=== PATIENT | male | born 1990 | race Caucasian/White ===

== ENCOUNTER 2021-02-10 11:23 | Emergency (ER) | payer SELFPAY ==
[2021-02-10 11:32] VITALS: BP 143/96; PULSE 80; RESP 16; TEMP 36; O2SAT 100
--- NOTE | 2021-02-10 11:38 | PC.NURSE ---
1136 50 mg benadryl po martha elena.
--- NOTE | 2021-02-10 11:44 | ED.WOUNDLAC ---
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 Patient denies any shortness of breath at this time no itching. Related Data Home Medications Medication Instructions Recorded Confirmed Epi Pen 02/10/21 Allergies Allergy/AdvReac Type Severity Reaction Status Date / Time venom-honey bee Allergy Severe Difficulty Unverified 02/10/21 11:42 Breathing latex Allergy Unknown Difficulty Unverified 02/10/21 11:42 Breathing Review of Systems Review of Systems: GENERAL:Well-appearing, well-nourished, and in no acute distress. HEAD:Normocephalic, atraumatic. EYES: PERRLA and EOMI. ENT: Nares clear, no rhinorrhea or epistaxis. Mucous membranes moist. NECK: Supple. CHEST: Clear to auscultation. No respiratory distress. HEART: Regular rate and rhythm. No murmur heard. Normal peripheral pulses. ABDOMEN: Soft, nontender, nondistended, normal active bowel sounds. EXTREMITIES: Normal range of motion. No edema. SKIN: Warm, dry, no rash. right arm swollen and ertyhema and warm to touch NEURO: No focal deficits. Alert and oriented x3. PMFSH Comments At time as signature, I have reviewed and agree with nursing past medical, social, surgical and family history. Please see nursing chart for further information. There is no relevant family history pertinent to the presenting complaint. Exam Narrative: GENERAL:Well-appearing, well-nourished, and in no acute distress. HEAD:Normocephalic, atraumatic. EYES: PERRLA and EOMI. ENT: Nares clear, no rhinorrhea or epistaxis. Mucous membranes moist. NECK: Supple. CHEST: Clear to auscultation. No respiratory distress. HEART: Regular rate and rhythm. No murmur heard. Normal peripheral pulses. ABDOMEN: Soft, nontender, nondistended, normal active bowel sounds. EXTREMITIES: Normal range of motion. No edema. SKIN: Warm, dry, no rash. Right wrist red swollen erythema and warm to touch NEURO: No focal deficits. Alert and oriented x3. Course ASSISTANT SERVICE MANAGER/PA Physician Supervision 50 mg of Benadryl given 40 mg Depo-Medrol IM Arm is less red swelling has trended down patient will continue with Benadryl at home epinephrine ordered for patient as well as a steroid Dosepak Vital Signs Vital signs: Vital Signs Temperature 96.8 F L 02/10/21 11:32 Pulse Rate 80 02/10/21 11:32 Respiratory Rate 16 02/10/21 11:32 Blood Pressure 143/96 H 02/10/21 11:32 Pulse Oximetry 100 02/10/21 11:32 Temperature 96.8 F L 02/10/21 11:32 Pulse Rate 80 02/10/21 11:32 Respiratory Rate 16 02/10/21 11:32 Blood Pressure 143/96 H 02/10/21 11:32 Pulse Oximetry 100 02/10/21 11:32 MDM - Wound/Laceration Differential Diagnosis Differential diagnosis: Likely laceration, abscess, abrasion, avulsion of skin and other (Allergic reaction) Discharge Plan Discharge Clinical Impression: Allergic reaction to bee sting Bee sting reaction Qualifiers: Encounter type: initial encounter Injury intent: accidental or unintentional Qualified Code(s): T63.441A - Toxic effect of venom of bees, accidental (unintentional), initial encounter Patient Disposition: Home, Self-Care Condition: Stable Instructions: Antibiotic Form, Insect Bite or Sting (ED), Anaphylaxis (ED), Hypertension (ED), General Allergic Reaction (ED) Additional Instructions: Use skin creams/lotion, such as those containing calamine or pramoxine to reduce itchiness Avoid scratching when possible to prevent worsening of the condition and disruption of the skin that could lead to bacterial infection To relieve itching, place a cool washcloth or some ice over the area that itches, rather than scratching
--- NOTE | 2021-02-10 11:45 | PC.NURSE ---
stated girl friend here and waiting outside prior to administration of medication.
[2021-02-10] MEDS: methylPREDNISolone ACETATE 40 MG/ML VIAL IM (11:56)
--- NOTE | 2021-02-10 12:00 | PC.NURSE ---
during medication injection pt witnessed wasp in room and was immediately taken to room 3.
== END 2021-02-10 12:17 | disposition home or self-care (01) ==
PROVIDERS: Emergency Provider Nurse Practitioner Family
DX: T63.441A Toxic effect of venom of bees, accidental (unintentional), initial encounter (principal)
CPT/HCPCS: 96372; 99213; A9270; G0463; J1030

== ENCOUNTER 2024-07-02 21:14 | Emergency (ER) | payer SELFPAY ==
--- NOTE | ~2024-07-02 | XR_ITS ---
EXAMINATION: XR chest 2V Exam Date/Time: 07/02/2024 21:43 CARBON PRINTER HISTORY: chest pain Comparison: None. RESULT: Lines, tubes, and devices: None. Lungs and pleura: Clear. Cardiomediastinal silhouette: Normal. Other: No acute osseous or upper abdominal finding. IMPRESSION: No acute cardiopulmonary process. Reviewed, dictated and finalized at location K. ON PRINTER
[2024-07-02 21:26] VITALS: BP 183/96; PULSE 104; RESP 16; TEMP 36.5; O2SAT 100
--- NOTE | 2024-07-02 21:27 | ECG_ITS ---
Test Date: 2024-07-02 21:39:02 Measurements Intervals Pierce Rate: 94 P: 60 NC: 125 QRS: 38 QRSD: 107 T: 42 QT: 348 QTc: 437 Interpretive Statements SINUS RHYTHM WITH SINUS ARRHYTHMIA No previous ECG available for comparison Electronically Signed On 07-03-2024 14:55:08 EXTENSION SUPERVISOR by Abram Cintron M.D.
[2024-07-02 21:53] LABS: Basophils Absolute Auto 0.1 K/mm3 (0.0-0.1); Basophils Percent Auto 0.5 % (0.2-1.2); Eosinophils Absolute Auto 0.5 K/mm3 (0-0.3); Eosinophils Percent Auto 5.5 % (0-4.4); Hematocrit 46.1 % (42.0-52.0); Hemoglobin 16.4 g/dL (14.0-18.0); Immature Granulocyte Absolute 0.02 K/mm3 (0.00-0.031); Immature Granulocyte Percent A 0.2 % (0-0.5); Lymphocytes Absolute Auto 2.13 K/mm3 (0.9-3.2); Mean Corpuscular HGB Conc 35.6 g/dl (32-36); Mean Corpuscular Hemoglobin 31.8 pg (26-34); Mean Corpuscular Volume 89.5 fl (80-100); Monocytes Absolute Auto 0.7 K/mm3 (0.1-0.6); Monocytes Percent Auto 7.7 % (2.6-8.5); Neutrophils Absolute Auto 5.8 K/mm3 (1.3-6.7); Neutrophils Percent Auto 63.1 % (45.5-73.1); Platelet Count Result 264 k/mm3 (150-375); Red Blood Count 5.15 M/mm3 (4.6-6.20); Red Cell Distribution Width 13.3 % (11.5-14.5); White Blood Count 9.3 K/mm3 (4.5-10.0)
[2024-07-02 22:02] LABS: Alanine Aminotransferase 34 U/L (6-50); Albumin Level 4.8 g/dL (3.5-5.1); Alkaline Phosphatase 49 U/L (38-126); Anion Gap 6 mmol/L (4-12); Aspartate Amino Transferase 32 U/L (17-59); Bilirubin,Total 0.6 mg/dL (0.2-1.3); Blood Urea Nitrogen 12 mg/dL (9-20); Calcium 9.5 mg/dL (8.4-10.2); Carbon Dioxide 25 mmol/L (22-30); Chloride 107 mmol/L (98-107); Estimated CRCL calculation 107 ml/min; Estimated Glomerular Filt Rate > 60; Glucose 111 mg/dL (65-110); Lipase 150 U/L (23-300); Potassium 3.3 mmol/L (3.4-5.0); Sodium 138 mmol/L (137-145)
[2024-07-02 22:06] LABS: Prothrombin Time 13.1 Seconds (11.1-14.7)
[2024-07-02 22:07] LABS: Partial Thromboplastin Time 28.5 Seconds (22.3-36.8)
[2024-07-02 22:13] LABS: Troponin I < 0.012 ng/mL (0.000-0.034)
[2024-07-03 00:45] VITALS: O2SAT 98
[2024-07-03 00:46] VITALS: BP 124/81; PULSE 72; RESP 14; O2SAT 97
--- NOTE | 2024-07-03 00:57 | ED_ITS ---
HPI - Chest Pain General Chief Complaint: Chest Pain Stated Complaint: chest tightness Time Seen by Provider: 07/03/24 00:31 History of Present Illness HPI narrative: Patient is a 34-year-old male who presents to the emergency department this evening complaining of chest pressure and burning sensation that has been ongoing for the past 3 days. Patient admits that he does chew tobacco and his significant other who is present at bedside does admit that he does also have a history of acid reflux. Denies any history of cardiovascular disease, patient states that he does not have any past medical history and does not take any medications. Also denies any family history of cardiovascular disease. Patient admits that the pain is intermittent and mild. Not associated with any alleviating or aggravating factors. Denies any recent illness including any fevers, chills, cough, nasal congestion, shortness of breath. Also denies any nausea, vomiting or abdominal pain. No additional symptoms or concerns at this time. Related Data Home Medications ?Medication ?Instructions ?Recorded ?Confirmed ?Last Taken ?Type Epi Pen 02/10/21 Unknown History Allergies Allergy/AdvReac Type Severity Reaction Status Date / Time venom-honey bee Allergy Severe Difficulty Verified 07/03/24 00:49 Breathing Review of Systems 2 Review of Systems: All systems are reviewed and are negative unless stated otherwise in the HPI. Exam 2 Narrative: General: Alert, awake, afebrile, in no acute distress. HEENT: PERRL, no rhinorrhea, no post nasal drip, oropharynx clear. Neck: Trachea midline, no JVD, no lymphadenopathy. Cardiovascular: Regular rate and rhythm, no murmurs, rubs or gallops, no peripheral edema. Respiratory: Clear to auscultation bilaterally, no tachypnea, no wheezing, no rhonchi, no rubs, no respiratory distress. Abdomen: Soft, nontender, nondistended, no rebound, no guarding, no peritoneal signs. Musculoskeletal: No joint swelling or deformity, normal muscle tone. Skin: No rashes or petechia, no signs of infection. Psychiatric: Alert and oriented, normal behavior and judgment for situation. Neurological: Alert and oriented to person, place, and time. Follows all commands. No focal deficits, speech is clear and fluent. Course Vital Signs Vital signs: Vital Signs Temperature 97.7 F 07/02/24 21:26 Pulse Rate 104 H 07/02/24 21:26 Respiratory Rate 16 07/02/24 21:26 Blood Pressure 183/96 H 07/02/24 21:26 Pulse Oximetry 100 07/02/24 21:26 Temperature 97.7 F 07/02/24 21:26 Pulse Rate 72 07/03/24 00:46 Respiratory Rate 14 07/03/24 00:46 Blood Pressure 124/81 07/03/24 00:46 Pulse Oximetry 97 07/03/24 00:46 Oxygen Delivery Room Air 07/03/24 00:45 MDM - Chest Pain MDM Narrative Medical decision making narrative: The patient was evaluated by myself in the emergency department. History is obtained from patient who is an independent historian and physical exam was performed. External medical records were reviewed at this time. IV was established and pertinent tests were ordered. Patient was administered 20 mg of oral Pepcid at this time. EKG was obtained which revealed sinus rhythm rate of 94 beats per minute. No ST changes, T wave inversions or evidence of acute ischemia. EKG was independently interpreted by me and is currently pending official cardiology read. Laboratory results obtained revealing no acute process. Troponin negative. Imaging studies obtained included CXR which was independently interpreted by me revealing no acute cardiopulmonary process, which is pending final radiology interpretation. Differential diagnosis considerations include acute stress reaction, anxiety, panic attack, GERD, peptic ulcer disease, acute coronary syndrome although unlikely given patient's low heart score of 0. Comorbidities impacting this visit include none. I have evaluated and discussed social determinants of health with the patient that could potentially impact subsequent diagnosis and treatment plans. On repeat assessment of the patient, reevaluation revealed that the patient is doing well and is in no acute distress. Patient symptoms have improved since he arrived to our emergency department. Repeat vital signs were all reviewed and noted to be stable. Differential diagnosis and treatment plan were discussed with the patient at bedside. Patient agrees with discussion and after shared medical decision making agrees with discharge. All questions were answered to the patient's satisfaction. Patient will follow up with PCP in 3-5 days. A script for Protonix was sent to patient's pharmacy to take as prescribed. Patient was provided with strict return precautions and instructed to return to the emergency department if any new or worsening symptoms develop. The patient was discharged in stable condition. Lab Data 07/02/24 21:45 07/02/24 21:45 Labs: Lab Results 07/02/24 Range/Units 21:45 WBC 9.3 (4.5-10.0) K/mm3 RBC 5.15 (4.6-6.20) M/mm3 Hgb 16.4 (14.0-18.0) g/dL Hct 46.1 (42.0-52.0) % MCV 89.5 (80-100) fl MCH 31.8 (26-34) pg MCHC 35.6 (32-36) g/dl RDW 13.3 (11.5-14.5) % Plt Count 264 (150-375) k/mm3 MPV 9.0 (7.4-10.4) fl Immature Gran % (Auto) 0.2 (0-0.5) % Neut % (Auto) 63.1 (45.5-73.1) % Lymph % (Auto) 23.0 (18.3-44.2) % [place] % (Auto) 7.7 (2.6-8.5) % Eos % (Auto) 5.5 H (0-4.4) % Baso % (Auto) 0.5 (0.2-1.2) % Lymph # (Auto) 2.13 (0.9-3.2) K/mm3 [place] # (Auto) 0.7 H (0.1-0.6) K/mm3 Eos # (Auto) 0.5 H (0-0.3) K/mm3 Baso # (Auto) 0.1 (0.0-0.1) K/mm3 Abs Immat Gran (auto) 0.02 (0.00-0.031) K/mm3 Absolute Neuts (auto) 5.8 (1.3-6.7) K/mm3 Absolute Nucleated RBC 0.000 (0.0-0.012) K/mm3 Nucleated RBC % 0.0 (0.0-0.2) % PT 13.1 (11.1-14.7) Seconds INR 1.0 APTT 28.5 (22.3-36.8) Seconds Sodium 138 (137-145) mmol/L Potassium 3.3 L (3.4-5.0) mmol/L Chloride 107 (98-107) mmol/L Carbon Dioxide 25 (22-30) mmol/L Anion Gap 6 (4-12) mmol/L BUN 12 (9-20) mg/dL Creatinine 1.20 (0.7-1.3) mg/dL Estim Creat Clear Calc 107 ml/min Estimated GFR > 60 (59 - ) Glucose 111 H (65-110) mg/dL Calcium 9.5 (8.4-10.2) mg/dL Total Bilirubin 0.6 (0.2-1.3) mg/dL AST 32 (17-59) U/L ALT 34 (6-50) U/L Alkaline Phosphatase 49 (38-126) U/L Troponin I < 0.012 (0.000-0.034) ng/mL Total Protein 8.0 (6.3-8.2) g/dL Albumin 4.8 (3.5-5.1) g/dL Lipase 150 (23-300) U/L Discharge Plan Discharge Clinical Impression: Atypical chest pain, History of gastroesophageal reflux (GERD) Patient Disposition: Home, Self-Care Condition: Improved Instructions: Antibiotic Form, Chest Pain (ED), GERD (Gastroesophageal Reflux Disease) (DC) Additional Instructions: Please follow-up with your family doctor within the next 3-5 days. Take the prescribed Protonix as instructed as it may help with your acid reflux as this could be causing some of your chest pressure/burning pain. Return to the ED if any new or worsening symptoms develop. Patient Language: Cymraes Prescriptions: New pantoprazole [Protonix] 20 mg tablet,delayed release (DR/EC) 20 mg PO HS 28 Days Qty: 28 0RF No Action Epi Pen epinephrine [EpiPen] 0.3 mg/0.3 mL auto-injector 0.3 mg IM ONCE PRN (Reason: anaphylaxis) Qty: 1 0RF Rx Instructions: as a single dose; may repeat once methylprednisolone [Medrol (Lyndon)] 4 mg tablets,dose pack See Rx Instructions .ROUTE .COMPLEX Qty: 21 0RF Rx Instructions: orally per package directions cetirizine [Zyrtec] 10 mg tablet 10 mg PO DAILY PRN (Reason: allergy symptoms) Qty: 30 0RF triamcinolone acetonide 0.025 % cream 1 applic topical BID PRN (Reason: allergic reaction) Qty: 15 0RF Follow-up/Referrals: Yaritza Agudelo DO [Physician] - 3 Days PHYSICIAN,CERTIFIED ALCOHOL COUNSELOR [Primary Care Provider] - Time of Disposition: 01:05
[2024-07-03] MEDS: FAMOTIDINE 20 MG TABLET PO (01:10)
[2024-07-03 01:13] VITALS: BP 102/88; PULSE 67; RESP 14; O2SAT 97
--- OUTSIDE RECORDS SUMMARY | 2024-07-10 02:20 | XMS_ITS | Clinical Summary ---
Author Organization [facility] Address [address] [place] [address]. [place], [place] [id number] [place] [id number] Care Team Providers Care Fraud Representative Name Role Phone None, Provider MD Primary Care Provider Unavaila ble Allergies No known active allergies Medications No known medications Family History Medical History Relation Comments Diabetes Father Hyperlipidemia Father Relation Status Comments Father Alive Mother Alive Social History Tobacco Use Types Packs/Day Years Used Date Smoking Tobacco: Never Smokeless Tobacco: Current Chew Alcohol Use Standard Drinks/Week Comments Yes 0 (1 standard drink = 0.6 oz pur e alcohol) rare use Sex and Gender Information Value Date Recorded Sex Assigned at Not on file Legal Sex Male 10:39 AM DOUGH MIXER OPERATOR Gender Identity Not on file Sexual Orientation Not on file Last Filed Vital Signs Vital Sign Reading Time Taken Comments Blood Pressure 119/80 05/19/2022 10:50 AM DOUGH MIXER OPERATOR Pulse 90 05/19/2022 10:50 AM DOUGH MIXER OPERATOR Temperature 36.3 ??C (97.4 ??F) 05/19/2022 10:[address] Respiratory Rate 20 05/19/2022 10:50 AM DOUGH MIXER OPERATOR Oxygen Saturation 100% 05/19/2022 10:50 AM DOUGH MIXER OPERATOR Inhaled Oxygen Concentration - - Weight 117.9 kg (260 lb) 05/19/2022 10:50 AM DOUGH MIXER OPERATOR Height 185.4 cm (6' 1 ) 05/19/2022 10:50 AM DOUGH MIXER OPERATOR Body Mass Index 34.3 05/19/2022 10:50 AM DOUGH MIXER OPERATOR Plan of Treatment Health Maintenance Due Date Last Done Comments Annual Physical 1995 Hepatitis C 2010 DTaP, Tdap and Td Vaccines ( 1 - Tdap) 2011 Hepatitis B Vaccines (1 of 3 - 19+ 3-dose series) 2011 COVID-19 Vaccine (2023-2 5 season) 2024 Influenza Adult (#1) 2024 HPV Vaccines Aged Out No longer eligi ble based on patient's age to complete this topic Meningococcal Vaccine Aged Out No zoe alba eligible based on patient's age to complete this topic Pneumococcal Vaccine: Pediat rics (0 to 5 Years) and At-Risk Patients (6 to 64 Years) Aged Out No longer eligible b ased on patient's age to complete this topic RSV Immunizations Under 20 Months Aged Out No longer eligible based on patient's age to complete this topic Insurance Care Teams Fraud Representative Relationship Specialty Start Date End Date None, Provider, PCP - General UNKNOWN PHYSICIAN SPECIALTY 05/19/22
--- OUTSIDE RECORDS SUMMARY | 2024-07-10 02:20 | XMS_ITS | Encounter Summary ---
Author Organization [facility] Address [address] [place] [address]. [place], [place] [id number] [place], [place] [id number] Care Team Providers Care Production Posting Clerk Name Role Phone None, Provider Primary Care Provider Unavaila ble Encounter Details Date Type Department Care Team (Latest Contact Info) Description 05/19/2022 Travel Social History Tobacco Use Types Packs/Day Years Used Date Smoking Tobacco: Never Smokeless Tobacco: Current Chew Alcohol Use Standard Drinks/Week Comments Yes 0 (1 standard drink = 0.6 oz pur e alcohol) rare use Sex and Gender Information Value Date Recorded Sex Assigned at Not on file Legal Sex Male 10:39 AM HEAD CUSTODIAN Gender Identity Not on file Sexual Orientation Not on file COVID-19 Exposure Response Date Recorded In the last 10 days, have yo u been in contact with someone who was confirmed or suspected to have Coronavirus/COVID-19? No / Unsure 05/19/2022 10:41 AM HEAD CUSTODIAN documented as of this encounter Plan of Treatment Not on file documented as of this encounter Visit Diagnoses Not on filedocumented in this encounter Care Teams Production Posting Clerk Relationship Specialty Start Date End Date None, Provider, PCP - General UNKNOWN PHYSICIAN SPECIALTY 05/19/22 documented as of this encounter
--- OUTSIDE RECORDS SUMMARY | 2024-07-10 02:21 | XMS_ITS | Clinical Summary ---
Author Organization [facility] Care Team Providers Care Assisted Living Housekeeper Name Role Phone Unavailable Primary Care Provider Unavailabl e Social History Tobacco Use Types Packs/Day Years Used Date Smoking Tobacco: Never Assessed Sex and Gender Information Value Date Recorded Sex Assigned at Not on file Legal Sex Male 10:38 AM DIRECTOR OF TAX SERVICES Gender Identity Not on file Sexual Orientation Not on file Plan of Treatment Health Maintenance Due Date Last Done Comments Hepatitis C Virus (HCV) Screening 1992 TdaP Immunization 1992 Hepatitis B Immunization (1 of 3 - 19+ 3-dose series) 2011 SARS-COV-2 Immunization ( season) 2023 Influenza Immunization (Seas on Ended) 2024 Meningococcal Immunization (ACWY) Aged Out No longer eligible based on patient's age to complete this topic Pneumococcal Immunization Combined Aged Out No longer eligible based on patient's age to complete this topic Rotavirus Immunization Aged Out No lo nger eligible based on patient's age to complete this topic
--- OUTSIDE RECORDS SUMMARY | 2024-07-10 02:21 | XMS_ITS | Encounter Summary ---
Author Organization [facility] Address [address] [place] [id number] Care Team Providers Care Wet Room Supervisor Name Role Phone Unavailable Primary Care Provider Unavailabl e Encounter Details Date Type Department Care Team (Late st Contact Info) Description 07/19/2020 9:30 AM WAITER/WAITRESS TAVERN Rapid Evaluation [place] [facility] Community Testing [facility] [address] [place] [address] Social History Tobacco Use Types Packs/Day Years Used Date Smoking Tobacco: Never Assessed Sex and Gender Information Value Date Recorded Sex Assigned at Not on file Legal Sex Male 10:38 AM WAITER/WAITRESS TAVERN Gender Identity Not on file Sexual Orientation Not on file documented as of this encounter Plan of Treatment Not on file documented as of this encounter Visit Diagnoses Not on filedocumented in this encounter
--- OUTSIDE RECORDS SUMMARY | 2024-07-10 02:21 | XMS_ITS | Encounter Summary ---
Author Organization [facility] Address [address] [place] [address]. [place], [place] [address] [place] [address] Care Team Providers Care Captain Fishing Vessel Name Role Phone None, Provider MD Primary Care Provider Unavaila ble Reason for Visit * Reason Comments Eye Problem Encounter Details Date Type Department Care Team (Latest Contact Info) Description 05/19/2022 10:41 AM HEAD PASTRY CHEF - 05/19/2022 11:39 AM HEAD PASTRY CHEF Hospital Encounter [facility] [address] [place] [address] Erick tSone PA [address] [place], [place] [id number] Eye Problem Discharge Disposition: Home or Self Care (Routine Discharge) Social History Tobacco Use Types Packs/Day Years Used Date Smoking Tobacco: Never Smokeless Tobacco: Current Chew Alcohol Use Standard Drinks/Week Comments Yes 0 (1 standard drink = 0.6 oz pur e alcohol) rare use Sex and Gender Information Value Date Recorded Sex Assigned at Not on file Legal Sex Male 10:39 AM HEAD PASTRY CHEF Gender Identity Not on file Sexual Orientation Not on file COVID-19 Exposure Response Date Recorded In the last 10 days, have yo u been in contact with someone who was confirmed or suspected to have Coronavirus/COVID-19? No / Unsure 05/19/2022 10:41 AM HEAD PASTRY CHEF documented as of this encounter Last Filed Vital Signs Vital Sign Reading Time Taken Comments Blood Pressure 119/80 05/19/2022 10:50 AM HEAD PASTRY CHEF Pulse 90 05/19/2022 10:50 AM HEAD PASTRY CHEF Temperature 36.3 ??C (97.4 ??F) 05/19/2022 10:[address] Respiratory Rate 20 05/19/2022 10:50 AM HEAD PASTRY CHEF Oxygen Saturation 100% 05/19/2022 10:50 AM HEAD PASTRY CHEF Inhaled Oxygen Concentration - - Weight 117.9 kg (260 lb) 05/19/2022 10:50 AM HEAD PASTRY CHEF Height 185.4 cm (6' 1 ) 05/19/2022 10:50 AM HEAD PASTRY CHEF Body Mass Index 34.3 05/19/2022 10:50 AM HEAD PASTRY CHEF documented in this encounter Discharge Instructions * Discharge Instructions* AYESHA Contreras - 05/19/2022 11:32 AM HEAD PASTRY CHEF Take medication as prescribed. Follow-up with your primary care provider in 5 to 7 days. Return emergency department symptoms worsen or new concerns. PASTRY CHEF * Attachments The following attachments cannot be sent through Care Everywhere. * Corneal Abrasion Discharge Instructions (Tajik) documented in this encounter Medications at Time of Discharge amoxicillin-clavu lanate (AUGMENTIN) 875-125 MG tablet Take 1 tablet (875 mg total) by mouth 2 (two) times daily for 10 days. 20 tablet 05/19/2022 05/29/2022 erythromycin (ROMYCIN) 5 MG/GM (0.5%) ophthalmic ointment Place into the right eye every 6 (six) hours for 7 days. 3.5 g 05/19/2022 05/26/2022 documented as of this encounter ED Notes * AYESHA Contreras - 05/19/2022 11:32 AM CST ED NOTE Chief Complaint Chief Complaint Patient presents with ??? Eye Problem History of Present Illness 31-year-old male presenting to urgent care for evaluation of multiple complaints. Primarily concerned of right eye irritation and discomfort over the past day. Patient states he was using a new marine welder yesterday however was wearing a mask unsure if he had debris flying to his face. Denies any visualchanges or drainage to the eye. Patient also reports sinus congestion with sinus pressure over the past 2 weeks. Reports thick green mucus drainage. No relief with [id number] medications. Denies fever, chills or difficulty breathing. Medical History ALLERGIES: No Known Allergies MEDICATIONS: Prior to Admission medications Medication Sig Start Date End Date Taking? Authorizing Provider amoxicillin-clavulanate (AUGMENTIN) 875-125 MG tablet Take 1 tablet (875 mg total) by mouth 2 (two)times daily for 10 days. 05/19/22 05/29/22 Yes AYESHA Contreras erythromycin (ROMYCIN) 5 MG/GM (0.5%) ophthalmic ointment Place into the right eye every 6 (six) hours for 7 days. 05/19/22 05/26/22 Yes AYESHA Contreras PAST MEDICAL HISTORY: Past medical history negative for heart disease, cancer, and diabetes. Past Medical History: Diagnosis Date ??? Clavicle fracture ??? Rib fracture PAST SURGICAL HISTORY: Past Surgical History: Procedure Laterality Date ??? NONE FAMILY HISTORY: Family history negative for heart disease, cancer Family History Problem Relation Name Age of Onset ??? Hyperlipidemia Father ??? Diabetes Father SOCIAL HISTORY: Social History Tobacco Use ??? Smoking status: Never Smoker ??? Smokeless tobacco: Current User Types: Chew Vaping Use ??? Vaping Use: Never used Substance Use Topics ??? Alcohol use: Yes Comment: rare use ??? Drug use: Yes Types: Marijuana Comment: daily Review of Systems Review of Systems Constitutional: Negative for activity change and appetite change. HENT: Positive for congestion and sinus pain. Negative for ear discharge, ear pain and sore throat. Eyes: Positive for redness. Negative for photophobia. Respiratory: Negative for cough and shortness of breath. Cardiovascular: Negative for chest pain. Gastrointestinal: Negative for nausea and vomiting. Musculoskeletal: Negative for back pain and neck pain. Neurological: Negative for dizziness, syncope and light-headedness. Physical Exam Filed Vitals: 05/19/22 1050 BP: 119/80 Pulse: 90 Resp: 20 Temp: 97.4 ??F (36.3 ??C) TempSrc: Temporal SpO2: 100% Weight: 117.9 kg (260 lb) Height: 6' 1 (1.854 m) Physical Exam Vitals and nursing note reviewed. Constitutional: General: He is not in acute distress. Appearance: He is well-developed. HENT: Head: Normocephalic. Nose: Nose normal. Eyes: Conjunctiva/sclera: Right eye: Right conjunctiva is injected. Pupils: Right eye: Corneal abrasion (less than 1mm medial aspect of lower cornea) present. Slit lamp exam: Right eye: No photophobia. Pulmonary: Effort: Pulmonary effort is normal. No respiratory distress. Musculoskeletal: Cervical back: Normal range of motion and neck supple. Skin: General: Skin is warm and dry. Neurological: Mental Status: He is alert and oriented to person, place, and time. Psychiatric: Behavior: Behavior normal. Thought Content: Thought content normal. Judgment: Judgment normal. Diagnostic Studies / Procedures ELECTROCARDIOGRAMS: No results found for this visit on 05/19/22. LABORATORY STUDIES: No results found for this visit on 05/19/22. IMAGING STUDIES No orders to display ED Course / Medical Decision Making Appears to have small corneal abrasion to the medial aspect of the right lower cornea. We will start patient on erythromycin ointment and have follow-up with ophthalmology. Also will start patient onAugmentin for sinusitis symptoms that have been present for 2 weeks with no resolution with niyk-elw-hcyzkby medications. Medications ophthalmic irrigation (EYE WASH) solution 2,360 drop (has no administration in time range) tetracaine 0.5 % ophthalmic solution 1 drop (has no administration in time range) fluorescein (FLUORETS) ophthalmic strip 1 strip (has no administration in time range) Clinical Impression Corneal abrasion (Primary) Sinusitis Current Discharge Medication List START taking these medications Details amoxicillin-clavulanate (AUGMENTIN) 875-125 MG tablet Take 1 tablet (875 mg total) by mouth 2 (two)times daily for 10 days. Qty: 20 tablet, Refills: 0 Class: Eprescribe Pharmacy: [facility] [address] [place] [address] (Ph #: [phone]) erythromycin (ROMYCIN) 5 MG/GM (0.5%) ophthalmic ointment Place into the right eye every 6 (six) hours for 7 days. Qty: 3.5 g, Refills: 0 Class: Eprescribe Pharmacy: [facility] [address] [place] [address] (Ph #: [phone]) Disposition: Discharge Follow-Up: Jacky Teresa MD [address] [place] [address] Schedule an appointment as soon as possible for a visit in 5 days AYESHA Contreras 05/19/2022 AYESHA Contreras 05/19/22 1137 Cosigned by Luci Nicole MD at 05/19/2022 8:55 PM HEAD PASTRY CHEF PASTRY CHEF PASTRY CHEF * Cherelle Purcell RN - 05/19/2022 10:52 AM CST Pt reports bilateral eye irritation and drainage that started Tuesday after trying out a new marine welder while wearing a mask. Pt states it felt like sand in his eye. History of seasonal allergies and congestion for months that is worse in the warmer weather. Does not wear glasses or contacts. PASTRY CHEF documented in this encounter Plan of Treatment Not on file documented as of this encounter Visit Diagnoses Diagnosis Corneal abrasion- Primary Superficial injury of cornea Sinusitis Unspecified sinusitis (chronic) documented in this encounter Administered Medications Inactive Administered Medications - up to 3 most recent administrations Medication Order MAR Action Action Date Dose Rate Site fluorescein (FLUORETS) ophthalmic strip 1 strip 1 strip, Both Eyes, Once, 1 dose, On Tue05/19/22 at 1115 Given 05/19/2022 11:38 AM HEAD PASTRY CHEF 1 strip ophthalmic irrigation (EYE WASH) solution 2,360 drop 2,360 drop (1 Bottle), Both Eyes, As needed, Other, Starting on Tue05/19/22 at 1056, Until Tue05/19/22 at 1342 Given 05/19/2022 11:38 AM HEAD PASTRY CHEF 2,360 drops tetracaine 0.5 % ophthalmic solution 1 drop 1 drop, Both Eyes, Once, 1 dose, On Tue05/19/22 at 1115 Given 05/19/2022 11:38 AM HEAD PASTRY CHEF 1 drop documented in this encounter Active and Recently Administered Medications Times are shown in HEAD PASTRY CHEF. Scheduled Medication Order 05/17/2022 05/18/2022 05/19/2022 fluorescein (FLUORETS) ophthalmic strip 1 strip (COMPLETED) 1 strip, Both Eyes, Once, 1 dose, On Tue05/19/22 at 1115 1138 (Given - Provid er: Екатерина Ferraro RN) tetracaine 0.5 % ophthalmic solution 1 drop (COMPLETED) 1 drop, Both Eyes, Once, 1 dose, On Tue05/19/22 at 1115 1138 (Given - Provid er: Екатерина Ferraro RN) PRN Medication Order 05/17/2022 05/18/2022 05/19/2022 ophthalmic irrigation (EYE WASH) solution 2,360 drop 2,360 drop (1 Bottle), Both Eyes, As needed, Other, Starting on Tue05/19/22 at 1056, Until Tue05/19/22 at 1342 1138 (Given - Provid er: Екатерина Ferraro RN) documented in this encounter Care Teams Captain Fishing Vessel Relationship Specialty Start Date End Date None, Provider, PCP - General UNKNOWN PHYSICIAN SPECIALTY 05/19/22 documented as of this encounter
--- OUTSIDE RECORDS SUMMARY | 2024-07-10 02:21 | XMS_ITS | Encounter Summary ---
Author Organization [facility] Address [address] [place] [id number] Care Team Providers Care Automobile Racer Name Role Phone Unavailable Primary Care Provider Unavailabl e Encounter Details Date Type Department Care Team (Late st Contact Info) Description 07/18/2020 Lab Requisition [facility] [address] [place] [address] [place], [place] [address] [place] [address] Social History Tobacco Use Types Packs/Day Years Used Date Smoking Tobacco: Never Assessed Sex and Gender Information Value Date Recorded Sex Assigned at Not on file Legal Sex Male 10:38 AM HOME HEALTH CARE COORDINATOR Gender Identity Not on file Sexual Orientation Not on file documented as of this encounter Plan of Treatment Not on file documented as of this encounter Procedures Procedure Name Priority Date/Time Associated Diagnosis Comments SARS-COV-2 PCR [facility] ONLY Routine 07/18/2020 10:46 AM HOME HEALTH CARE COORDINATOR documented in this encounter Visit Diagnoses Not on filedocumented in this encounter
== END 2024-07-03 01:15 | disposition home or self-care (01) ==
PROVIDERS: Emergency Provider Emergency Medicine
DX: R07.89 Other chest pain (principal); K21.9 Gastro-esophageal reflux disease without esophagitis; F17.220 Nicotine dependence, chewing tobacco, uncomplicated
CPT/HCPCS: 36415; 71046; 80053; 83690; 84484; 85025; 85610; 85730; 93005; 99284; A9270